=== PATIENT | female | born 1975 | race Caucasian/White ===

== ENCOUNTER 2016-06-15 06:13 | Day surgery (SDC) | payer BC, OTHER ==
[2016-06-15] MEDS ORDERED: LR 1,000 ML IV ONE ×2 (06:40→07:00)
[2016-06-15] MEDS ORDERED: LIDOCAINE 1% 5 ML SDV ID PRN (06:40)
[2016-06-15] MEDS ORDERED: LIDOCAINE 2% 5 ML SDV ONE (06:49)
[2016-06-15] MEDS ORDERED: fentaNYL 100 MCG/2 ML INJ ONE ×4 (06:49→10:27)
[2016-06-15] MEDS ORDERED: PROPOFOL/EMULSION 500 MG/50 ML BOTTLE IV ONE ×2 (06:49→08:42)
[2016-06-15] MEDS ORDERED: DEXAMETHASONE 4 MG/ML VIAL ONE (06:49)
[2016-06-15] MEDS ORDERED: ROCURONIUM 100 MG/10 ML VIAL ONE (06:50)
[2016-06-15] MEDS ORDERED: PHENAZOPYRIDINE HCL 200 MG TAB PO ONE (07:00)
[2016-06-15] MEDS ORDERED: ceFAZolin 2 GM/DEXTROSE 100 ML IV ONE (07:00)
[2016-06-15] MEDS ORDERED: MIDAZOLAM 2 MG/2 ML VIAL ONE (07:12)
[2016-06-15] MEDS ORDERED: BUPIVACAINE/EPI 0.5% 30 ML SDV ONE (07:32)
[2016-06-15] MEDS ORDERED: SKIN ADHESIVE (DERMABOND) 1 EACH TP ONE (07:33)
[2016-06-15] MEDS ORDERED: ONDANSETRON 4 MG/2 ML VIAL ONE (09:01)
[2016-06-15] MEDS ORDERED: KETOROLAC 30 MG/1 ML SDV ONE (09:01)
[2016-06-15] MEDS ORDERED: NEOSTIGMINE METHYLSULFATE 5 MG/5 ML SYR ONE (09:11)
[2016-06-15] MEDS ORDERED: GLYCOPYRROLATE 0.2 MG/1 ML VIAL ONE ×2 (09:14→09:17)
[2016-06-15] MEDS ORDERED: OXYCODONE/APAP 5/325 TAB ONE ×2 (10:05→10:56)
--- NOTE | 2016-06-15 10:39 | GOP ---
[f rep st] OPERATIVE REPORT DATE OF OPERATION: 06/15/2016 SURGEON: Siddharth Wagner MD PATTERN WEAVER: Raeann Temple CFA ANESTHESIA: General. PREOPERATIVE DIAGNOSIS: 1. Dysmenorrhea. 2. Pelvic pain. 3. Endometriosis. POSTOPERATIVE DIAGNOSIS: 1. Dysmenorrhea. 2. Pelvic pain. 3. Endometriosis. PROCEDURE PERFORMED: 1. Robotic excision of endometriosis in posterior cul-de-sac, bilateral uterosacral ligaments, bilateral ovarian fossa, anterior cul-de-sac and left pelvic brim. 2. Bilateral ureterolysis. 3. Ovarian transposition. FINDINGS: SPECIMENS: Pelvic peritoneum with endometriosis. ESTIMATED BLOOD LOSS: Scant. DESCRIPTION OF PROCEDURE: The patient was taken to the operating room, where she was identified. General anesthesia was administered and found to be adequate. She was placed in the lithotomy position and prepared and draped in normal sterile fashion. A Hulka tenaculum was placed in the uterus for manipulation. A Doyle catheter was then placed. A 1 cm umbilical incision was made through her prior surgical scar. The Veress needle with the CO2 gas flowing was advanced into the peritoneal cavity. The abdomen was then insufflated with carbon dioxide gas. The 12 mm trocar followed by the laparoscope were then inserted. The upper abdomen was unremarkable. There was no evidence of endometriosis on either diaphragm. There were adhesions of small bowel to the anterior abdominal wall from her prior surgical procedure. Two lateral ports were placed on the right and 1 on the left under direct visualization. She then was placed in Trendelenburg position and the DaVinci robot docked on the left side. The instruments were then brought into the abdominal cavity under direct visualization. The adhesions of the small bowel to the anterior abdominal wall were taken down sharply. The bowel was then moved into the upper abdomen. There was endometriosis seen throughout the posterior cul-de-sac, both ovarian fossas as well as the left pelvic brim and anterior cul-de-sac extending along the anterior uterus. The lesions in the anterior cul-de-sac and the left pelvic brim were completely excised. There were several small lesions on the right ovary which were fulgurated. A bilateral ovarian transposition was then performed by suturing the ovaries to the ipsilateral round ligaments near the internal inguinal ring. The ovary over the posterior cul-de-sac was completely excised from the rectum extending to the cervix anteriorly and lateral to both uterosacral ligaments. The endometriosis in the ovarian fossas were then excised. Prior to performing this, she required a bilateral ureterolysis as there was endometriosis overlying both ureters. The peritoneum near the pelvic brim was incised on the left. The ureter was then gently dissected free. The dissection was carried distally to just beyond where the ureter crossed underneath the left uterine artery. The dissection lateralized the ureter off the overlying peritoneum and endometriosis. Once this was accomplished, the entire peritoneal endometriosis was completely excised extending all the way to the lateral margin of the uterus. The exact same procedure was performed on the patient's right ureter and ovarian fossa. The endometriosis on the posterior lower uterine segment and cervix was then excised. The pelvis was then copiously irrigated with sterile saline and hemostasis was present. One sheet of Interceed was placed in the posterior cul-de-sac to try to limit postoperative adhesions. The robot was then undocked. The fascia was closed with 0 Vicryl. The skin with 4-0 Monocryl and surgical adhesive. Anesthesia was reversed. The patient taken the PACU awake, in stable condition. COMPLICATIONS: None. DISPOSITION: Patient stable to PACU. /[id number]/MODL MTDD
== END 2016-06-15 11:30 | disposition home or self-care (01) ==
LOC: FSGY 06:13
PROVIDERS: ATTEND Obstetrics & Gynecology
PROC: 0UB24ZZ Excision of Bilateral Ovaries, Percutaneous Endoscopic Approach (ICD-10-PCS; 2016-06-15)
PROC: 0DB84ZZ Excision of Small Intestine, Percutaneous Endoscopic Approach (ICD-10-PCS; 2016-06-15)
PROC: 0US24ZZ Reposition Bilateral Ovaries, Percutaneous Endoscopic Approach (ICD-10-PCS; 2016-06-15)
PROC: 0TN64ZZ Release Right Ureter, Percutaneous Endoscopic Approach (ICD-10-PCS; 2016-06-15)
PROC: 0DB84ZZ Excision of Small Intestine, Percutaneous Endoscopic Approach (ICD-10-PCS; 2016-06-15)
PROC: 0UBF4ZZ Excision of Cul-de-sac, Percutaneous Endoscopic Approach (ICD-10-PCS; principal; 2016-06-15 07:15)
PROC: 0U504ZZ Destruction of Right Ovary, Percutaneous Endoscopic Approach (ICD-10-PCS; 2016-06-15 07:15)
DX: N80.3 Endometriosis of pelvic peritoneum (principal); N80.1 Endometriosis of ovary; N80.5 Endometriosis of intestine; N94.6 Dysmenorrhea, unspecified; R10.2 Pelvic and perineal pain; N85.4 Malposition of uterus; K21.9 Gastro-esophageal reflux disease without esophagitis; F41.9 Anxiety disorder, unspecified
CPT/HCPCS: J0690; J1100; J1885; J2250; J2405; J2704; J2710; J3010